=== PATIENT | male | born 1960 | race Caucasian/White ===

== ENCOUNTER → 2018-07-06 | Outpatient (CLI) | payer MEDICAID ==
--- NOTE | 2018-07-06 16:32 | US ---
EXAMINATION TYPE: Ultrasound MSK right shoulder. Ultrasound MSK left shoulder. DATE OF EXAM: 07/06/2018 COMPARISON: NONE CLINICAL HISTORY: 57-year-old male M25.511,M25.512 CHR PAIN IN BOTH SHOULDERS. Chronic bilateral shou lder pain, worsening, right more so than left. Limitation range of motion lifting arms above head. TECHNIQUE: Multiple sonographic images of the bilateral shoulders were obtained. FINDINGS: RIGHT: There is mild thickening of the long head biceps tendon with mild to moderate tenosynovial fluid. There is diffuse heterogeneity of the subscapularis tendon with bony spurring of the lesser tuberosit y and small areas of intrasubstance tears. The majority of the subscapularis tendon remains intact. Moderate degenerative spurring and capsular distention at the acromioclavicular joint The posterior labrum is diffusely degenerative and torn. Small effusion within the posterior recess o f the glenohumeral joint. There is diffuse heterogeneity of the supraspinatus tendon with more focal hypoechogenicity and sugge stion of slight volume loss along the anterior infraspinatus tendon fibers measuring 1 cm long and co ntacting the bursal surface. The infraspinatus tendon remains intact. Mild effusion within the subacromial/subdeltoid bursa. No atrophy of the rotator cuff musculature. LEFT: Mild thickening of the long head biceps tendon with mild tenosynovial fluid. The majority of the subscapularis tendon remains intact. There is capsular distention at the AC joint with a congestion of some joint space widening likely on a degenerative basis. The posterior labrum appears normal given patient's age. No significant effusion in the posterior rec ess of the glenohumeral joint. Infraspinatus tendon is intact. No atrophy of the rotator cuff musculature. Mild heterogeneity of both supraspinatus and infraspinatus tendons with small area of bursal sided fr aying at the junction of the supraspinatus and infraspinatus tendons. Mild effusion within the subacromial/subdeltoid bursa IMPRESSION: Right: 1. Marked supraspinatus tendinosis with either focal severe tendinosis of the far anterior fibers or a partial-thickness bursal sided tear measuring 1 cm long. No high-grade partial or full-thickness te ar. 2. Additional marked subscapularis tendinosis with small areas of intrasubstance tearing. The majorit y of the subscapularis tendon remains intact. 3. No atrophy of the rotator cuff musculature. 4. Moderate AC joint OA and a diffusely degenerative and torn posterior labrum. There may be underlyi ng glenohumeral joint OA which can be better assessed with radiographs. 5. Mild subacromial/subdeltoid bursitis. 6. Moderate long head biceps tendinosis and tenosynovitis. Left: 1. Mild rotator cuff tendinosis with some bursal sided fraying at the junction of the supraspinatus a nd infraspinatus tendon. No high-grade partial or full-thickness tear or muscle atrophy. 2. At least moderate AC joint OA. Widening of the AC joint could be secondary to prior capsular injur y. 3. Mild long head biceps tendinosis and tenosynovitis. 4. Mild subacromial/subdeltoid bursitis.
== END | disposition home or self-care (01) ==
LOC: RADUSWWP 12:31
PROVIDERS: ATTEND Internal Medicine Rheumatology
DX: S43.51XA Sprain of right acromioclavicular joint, initial encounter (principal); M75.82 Other shoulder lesions, left shoulder; M75.81 Other shoulder lesions, right shoulder; M19.012 Primary osteoarthritis, left shoulder; M19.011 Primary osteoarthritis, right shoulder; M75.52 Bursitis of left shoulder; M75.51 Bursitis of right shoulder